=== PATIENT | male | born 1955 | race Caucasian/White ===

== ENCOUNTER → 2017-11-18 10:38 | Outpatient (CLI) | payer OTHER | END | disposition home or self-care (01) | LOC: LAB 10:38 | DX: C61 Malignant neoplasm of prostate (principal) ==

== ENCOUNTER 2018-03-02 11:17 | Outpatient (CLI) | payer OTHER | END 2018-03-02 11:28 | disposition home or self-care (01) | LOC: LAB 11:17 | DX: E11.9 Type 2 diabetes mellitus without complications (principal) ==

== ENCOUNTER 2018-11-16 09:33 | Outpatient (CLI) | payer OTHER | END 2018-11-16 09:46 | disposition home or self-care (01) | LOC: LAB 09:33 | DX: C61 Malignant neoplasm of prostate (principal) ==

== ENCOUNTER → 2019-06-27 09:47 | Outpatient (CLI) | payer OTHER | END | disposition home or self-care (01) | LOC: LAB 09:47 | DX: C61 Malignant neoplasm of prostate (principal) ==

== ENCOUNTER 2019-09-03 10:39 | Emergency (ER) | payer OTHER ==
[~2019-09-03] VITALS: Ht 175.3 cm; Wt 108.9 kg
== END 2019-09-03 13:51 | disposition home or self-care (01) ==
LOC: ER 10:39
DX: S43.034A Inferior dislocation of right humerus, initial encounter (principal); W18.39XA Other fall on same level, initial encounter; Y93.89 Activity, other specified; Y92.89 Other specified places as the place of occurrence of the external cause; Y99.8 Other external cause status

== ENCOUNTER → 2020-02-07 13:25 | Outpatient (CLI) | payer OTHER | END | disposition home or self-care (01) | LOC: LAB 13:25 | DX: C61 Malignant neoplasm of prostate (principal) ==

== ENCOUNTER → 2020-02-16 10:06 | Outpatient (CLI) | payer OTHER | END | disposition home or self-care (01) | LOC: LAB 10:06 | DX: N30.00 Acute cystitis without hematuria (principal) ==

== ENCOUNTER → 2020-02-23 | Outpatient (CLI) | payer OTHER | END | disposition home or self-care (01) | LOC: TOM 14:05 | DX: C61 Malignant neoplasm of prostate (principal); R31.0 Gross hematuria ==

== ENCOUNTER 2020-08-27 13:03 | Outpatient (CLI) | payer OTHER | END 2020-08-27 15:00 | disposition home or self-care (01) | LOC: LAB 13:03 | PROVIDERS: ATTEND Urology | DX: C61 Malignant neoplasm of prostate (principal) ==

== ENCOUNTER → 2021-02-20 11:53 | Outpatient (CLI) | payer OTHER | END | disposition home or self-care (01) | LOC: LAB 11:53 | PROVIDERS: ATTEND Urology | DX: C61 Malignant neoplasm of prostate (principal) ==

== ENCOUNTER 2021-08-30 12:12 | Outpatient (CLI) | payer OTHER | END 2021-08-30 12:21 | disposition home or self-care (01) | LOC: LAB 12:12 | PROVIDERS: ATTEND Urology | DX: C61 Malignant neoplasm of prostate (principal) ==

== ENCOUNTER 2022-02-28 12:24 | Outpatient (CLI) | payer OTHER | END 2022-02-28 12:29 | disposition home or self-care (01) | LOC: LAB 12:24 | PROVIDERS: ATTEND Urology | DX: C61 Malignant neoplasm of prostate (principal) ==

== ENCOUNTER 2022-08-04 16:06 | Outpatient (CLI) | payer OTHER | END 2022-08-04 16:09 | disposition home or self-care (01) | LOC: LAB 16:06 | PROVIDERS: ATTEND Urology | DX: C61 Malignant neoplasm of prostate (principal) ==

== ENCOUNTER → 2023-08-11 12:18 | Outpatient (CLI) | payer OTHER | END | disposition home or self-care (01) | LOC: LAB 12:18 | PROVIDERS: ATTEND Urology | DX: C61 Malignant neoplasm of prostate (principal) ==

== ENCOUNTER → 2024-04-28 11:13 | Outpatient (CLI) | payer OTHER ==
[2024-04-28 11:44] LABS: PH,URINE 6.5 (5.0-8.0); URINE APPEARANCE Clear; URINE BILIRRUBIN Negative (NEGATIVE); URINE BLOOD Negative; URINE COLOR Yellow; URINE GLUCOSE Negative (NEGATIVE); URINE LEUKOCYTE Trace; URINE NITRATE Negative; URINE PROTEIN Trace (NEGATIVE); URINE UROBILINOGEN 0.2 E.U./dl
[2024-04-28 11:48] LABS: URINE BACTERIA 8.8 uL (0.0-1933); URINE EPITHELIAL CELLS 2.3 uL (0.0-38.8); URINE RBC 11.1 uL (0.0-20.8)
[2024-04-28 11:49] LABS: HEMATOCRIT 42.5 % (39.0-48.0); HEMOGLOBIN 14.7 g/dL (13-16.00); MEAN CELL VOLUME 89.6 fL (80.0-100.00); MEAN CORPUSCULAR HGB CONC 34.6 g/dl (32.0-36.0); PLATELET COUNT 239 K/uL (150-450); RED BLOOD COUNT 4.74 M/uL (4.00-6.00); RED CELL DISTRIBUTION WIDTH 13.2 % (11.5-14.5)
[2024-04-28 12:26] LABS: ALBUMIN 4.1 gm/dL (3.4-5.0); ALKALINE PHOSPHATASE 92 U/L (50-136); ALT/SGPT 26 U/L (12-78); ANION GAP 7 (10.0-20.0); AST/SGOT 17 U/L (15-37); BILIRUBIN TOTAL 0.77 mg/dL (0.3-1.2); BLOOD UREA NITROGEN 16 mg/dL (7-18); BUN CREA RATIO 18 (7.0-25.0); CALCIUM 9.7 mg/dL (8.5-10.1); CARBON DIOXIDE 30 mEq/L (21-32); CHLORIDE 109 mmol/L (98-107); CHOL HDL RATIO 2.9 (0-5.0); CHOLESTEROL 186 mg/dL (0-200); CREATININE SERUM 0.87 mg/dL (0.70-1.30); GFR 87.52; GLOBULINA 3.9 G/DL (2.4-3.5); GLUCOSE FASTING 112 mg/dL (65-100); HDL 65 mg/dl (40-60); LDL 82 mg/dl (0-130); OSMOLALITY SERUM 283 MOSM/KG (275-295); POTASSIUM 5.08 mEq/L (3.5-5.1); SODIUM 141 mmol/L (136-145); TRIGLYCERIDES 193 mg/dL (0-150); TSH 0.663 uIU/mL (0.358-3.74); VLDL 38 (0-39)
[2024-04-28 12:43] LABS: PROSTATIC SPECIFIC ANTIGEN < 0.010 NG/ML (0.010-4.00)
[2024-04-29 13:44] LABS: ob NEGATIVE (NEGATIVE)
== END | disposition home or self-care (01) ==
LOC: LAB 11:13
PROVIDERS: ATTEND General Practice
DX: R73.01 Impaired fasting glucose (principal); I11.9 Hypertensive heart disease without heart failure; N30.00 Acute cystitis without hematuria; E78.00 Pure hypercholesterolemia, unspecified; E03.9 Hypothyroidism, unspecified; Z12.11 Encounter for screening for malignant neoplasm of colon; N40.0 Benign prostatic hyperplasia without lower urinary tract symptoms